=== PATIENT | male | born 1965 | race Caucasian/White ===

== ENCOUNTER → 2017-07-13 | Outpatient (CLI) | payer OTHER | END | disposition home or self-care (01) | LOC: CARD 09:54 | PROVIDERS: ATTEND Family Medicine | DX: R00.1 Bradycardia, unspecified (principal) | CPT/HCPCS: 93017 ==

== ENCOUNTER 2020-03-25 08:10 | Emergency (ER) | payer OTHER ==
[~2020-03-25] VITALS: Ht 172.7 cm; Wt 71.8 kg
--- NOTE | 2020-03-25 08:59 | NUR ---
BLADDER SCAN COMPLETED, APPROX 230ML IN PT'S BLADDER. ANA LILIA ROSS AT BEDSIDE FOR ASSESSMENT.
--- NOTE | 2020-03-25 09:07 | NUR ---
PT VOIDED 400ML. ER CODY AWARE.
[2020-03-25 09:30] LABS: MICROSCOPIC NOT IND
[2020-03-25 09:34] LABS: BASOPHILS # (AUTO) 0.02 x10^3/uL (0-0.1); BASOPHILS % (AUTO) 0 % (0-1); EOSINOPHILS # (AUTO) 0.15 x10^3/uL (0-0.4); EOSINOPHILS % (AUTO) 1 % (1-7); LYMPHOCYTES # (AUTO) 1.68 x10^3/uL (1-3.4); LYMPHOCYTES % (AUTO) 15 % (22-44); MD NO; MEAN CORPUSCULAR HEMOGLOBIN 31.4 pg (27.5-34.5); MEAN CORPUSCULAR HGB CONC 33.7 g/dL (33.2-36.2); MEAN CORPUSCULAR VOLUME 93.2 fL (81-97); MEAN PLATELET VOLUME 9.1 fL (7.4-10.4); MONOCYTES # (AUTO) 1.04 x10^3/uL (0.2-0.8); MONOCYTES % (AUTO) 9 % (2-9); NEUTROPHILS # (AUTO) 8.24 x10^3/uL (1.8-6.8); NEUTROPHILS % (AUTO) 74 % (42-75); PLATELET COUNT 246 x10^3/uL (130-400); RED BLOOD COUNT 4.39 x10^6/uL (4.38-5.82); RED CELL DISTRIBUTION WIDTH 13.3 % (9.4-14.8)
--- NOTE | 2020-03-25 10:02 | NUR ---
PT RESTING IN BED, AWIATING ALL LAB RESULTS. PT REMAINS ON MONITORS, VSS. CONT TO MONITOR.
--- NOTE | 2020-03-25 10:24 | NUR ---
PT IV STARTED PER ORDERS. IVF INFUSING. PT AWAITING CT. PT REMAINS ON MONITORS, VSS. CONT TO MONITOR.
[2020-03-25] MEDS ORDERED: SODIUM CHLORIDE 0.9% 1,000ML IVBOLUS ONE (10:30)
[2020-03-25 10:31] LABS: ALBUMIN 3.1 g/dL (3.4-5.0); ANION GAP 6 mmol/L (5-15); CALCIUM 9.2 mg/dL (8.5-10.1); CHLORIDE 108 mmol/L (98-107)
[2020-03-25 10:43] LABS: CREATININE 0.86 mg/dL (0.7-1.3); TROPONIN I < 0.015 ng/mL (0.000-0.045)
[2020-03-25 11:38] VITALS: BP 132/70
--- NOTE | 2020-03-25 11:38 | NUR ---
PT VOIDED 800ML URINE. PT TO CT.
[2020-03-25] MEDS ORDERED: OMNIPAQUE 350 MG/ML, 75ML BOTTLE ONE (13:17)
--- NOTE | 2020-03-25 13:29 | NUR ---
TASK RN: PT UP OUT OF BED TO BATHROOM, AMBULATING WITHOUT ASSISTANCE
== END 2020-03-25 13:44 | disposition home or self-care (01) ==
LOC: ED 09:28
DX: R33.0 Drug induced retention of urine (principal); M25.512 Pain in left shoulder; R07.89 Other chest pain; R00.1 Bradycardia, unspecified
CPT/HCPCS: 36415; 71045; 71275; 80048; 81003; 82040; 84484; 85025; 85379; 93005; 99285; J7030; Q9967